=== PATIENT | female | born 1965 | race African-American/Black ===

== ENCOUNTER 2020-09-29 18:08 | Inpatient (IN) | payer OTHER ==
[~2020-09-29] VITALS: Ht 162.6 cm; Wt 130.2 kg
[2020-09-29 18:30] LABS: BASOPHILS # (AUTO) 0.1 /CMM (0.0-0.2); HEMOGLOBIN 11.5 g/dL (11.5-14.8); LYMPHOCYTES # (AUTO) 3.1 /CMM (0.8-4.8); MONOCYTES # (AUTO) 0.5 /CMM (0.1-1.30); NEUTROPHILS # (AUTO) 4.2 /CMM (1.8-8.9); WHITE BLOOD COUNT (AUTO) 8.6 K/uL (4.3-11.0)
[2020-09-29 18:33] LABS: BASOPHILS % (AUTO) 0.6 % (0.0-2.0); EOSINOPHILS % (AUTO) 8.9 % (0.0-6.0); HEMATOCRIT 37 % (33-45); LYMPHOCYTES % (AUTO) 35.6 % (20.0-44.0); MEAN CORPUSCULAR HGB CONC 31 g/dl (31.0-36.0); MEAN CORPUSCULAR VOLUME 77 fL (82-100); NEUTROPHILS % (AUTO) 48.9 % (43.0-81.0); PLATELET COUNT (AUTO) 378 /CMM (150-450); RED BLOOD CELL COUNT(AUTO) 4.75 MIL/uL (4.0-5.2)
[2020-09-29 18:47] LABS: ACETAMINOPHEN < 10 ug/ml (10-30); ALCOHOL, BLOOD 0 mg/dL (0-0); CALCIUM, SERUM 8.8 mg/dL (8.5-10.1); CARBON DIOXIDE 33 mmol/L (21-32); CHLORIDE 109 mmol/L (98-107); CREATININE 0.9 mg/dL (0.6-1.3); GLUCOSE 119 mg/dL (74-106); POTASSIUM 3.3 mmol/L (3.5-5.1); SODIUM SERUM 145 mmol/L (136-145); UREA NITROGEN, BLOOD 18 mg/dL (7-18)
--- NOTE | 2020-09-29 18:53 | NUR ---
THE PATIENT IS ALERT AND ORIENTED X3. DENIES PAIN. IN ROOM AIR AND DENIES SOB. RESPIRATION REGULAR AND UNLABORED.
--- NOTE | 2020-09-29 19:14 | NUR ---
UA DRUG SCREEN CANCELLED, ITS DONE FROM THE URGENT CARE TODAY.
--- NOTE | 2020-09-29 19:46 | NUR ---
BED 216-B
--- NOTE | 2020-09-29 20:16 | NUR ---
REPORT GIVEN TO TIFFANIE CHARGE NURSE
[2020-09-29] MEDS ORDERED: POTASSIUM CHLORIDE 20 MEQ TAB.PRT.SR PO ONE ×2 (20:25→20:30)
--- NOTE | 2020-09-29 20:59 | NUR ---
PT TRANSPORTED TO ICU
[2020-09-29] MEDS ORDERED: ARIP10TA9 PO (21:02)
[2020-09-29] MEDS ORDERED: DIPH50CA37 PO (21:03)
[2020-09-29] MEDS ORDERED: MAG HYDROX/AL HYDROX/SIMETH 30 ML UDC PO PRN (21:30)
[2020-09-29] MEDS ORDERED: ZOLPIDEM TARTRATE 5 MG TABLET PO PRN (21:30)
[2020-09-29] MEDS ORDERED: LORAZEPAM 1 MG TABLET PO PRN (21:30)
[2020-09-29] MEDS ORDERED: ACETAMINOPHEN 325 MG TABLET PO PRN (21:30)
[2020-09-29] MEDS ORDERED: MAGNESIUM HYDROXIDE 30 ML UDC PO PRN (21:30)
[2020-09-29] MEDS ORDERED: BLOOD SUGAR DIAGNOSTIC 1 EACH STRIP IN ONE (22:00)
--- NOTE | 2020-09-29 22:00 | NUR ---
[facility] DENTAL HYGIENIST NOTES: ADMITTED A 55YO FEMALE ON 5150 HOLD FOR DANGER TO SELF FROM [facility]. PER HOLD, PATIENT CALLED 911, FEELING HOPELESS AND SUICIDAL. PATIENT LOST EVERYTHING AND APPARENTLY HOMELESS NOW, GOT ILL AND WAS TRANSFERRED TO A FACILITY. PATIENT WILL BE UNDER THE CARE OF DR. VALENZUELA AND DR JASON FOR PSYCH AND MEDICAL DOCTORS RESPECTIVELY. DR JASON CAME TO THE UNIT. PATIENT WAS BROUGHT INTO THE UNIT VIA GURNEY, UPON FACE TO FACE ASSESSMENT, PATIENT PRESENTS ALERT AND ORIENTED X2-3, DENIES ANY MEDICAL HEALTH ISSUES HOWEVER, PATIENT'S MEDICAL RECORDS FROM PREVIOUS FACILITY STATES THAT PATIENT HAS CHRONIC BILATERAL KNEE PAIN AND HYPERTENSION. PATIENT WALKS WITH A STEADY GAIT, NO SKIN ISSUES NOTED AT THIS TIME. FACE PHOTO DONE. PATIENT NOTED TO BE DISHEVELED, UNKEMPT, FEARFUL AND ANXIOUS, LOOKING SAD AND HOPELESS. REALITY ORIENTATION DONE. Q15 MIN CHECKS INITIATED. CARE PLAN FORMULATED SPECIFIC TO THE PATIENT'S NEEDS. ORIENTATION TO UNIT, STAFF, DOCTORS DONE. GUIDE TO PRESCRIPTIONS MEDICATIONS AND PATIENT'S RIGHTS HANDBOOK PROVIDED. PATIENT SIGNED ADMISSION PAPERS. PATIENT THEN ADVISED OF THE HOLD. ENCOURAGED PATIENT TO VERBALIZE THOUGHTS AND FEELINGS TO STAFF AND INSTRUCTED TO CALL FOR HELP WHEN FEELING UNSAFE. ENVIRONMENTAL SAFETY CHECK DONE. WILL MONITOR PATIENT'S MOOD SAFETY AND BEHAVIOR.
[2020-09-30 06:06] LABS: BASOPHILS % (AUTO) 0.5 % (0.0-2.0); EOSINOPHILS % (AUTO) 10.8 % (0.0-6.0); HEMATOCRIT 34 % (33-45); HEMOGLOBIN 10.7 g/dL (11.5-14.8); LYMPHOCYTES # (AUTO) 2.9 /CMM (0.8-4.8); LYMPHOCYTES % (AUTO) 33.9 % (20.0-44.0); MEAN CORPUSCULAR HGB CONC 31 g/dl (31.0-36.0); MEAN CORPUSCULAR VOLUME 77 fL (82-100); MONOCYTES # (AUTO) 0.6 /CMM (0.1-1.30); MONOCYTES % (AUTO) 7.5 % (2.0-12.0); NEUTROPHILS % (AUTO) 47.3 % (43.0-81.0); PLATELET COUNT (AUTO) 335 /CMM (150-450); RED BLOOD CELL COUNT(AUTO) 4.43 MIL/uL (4.0-5.2); WHITE BLOOD COUNT (AUTO) 8.5 K/uL (4.3-11.0)
[2020-09-30 06:51] LABS: ALBUMIN 2.7 g/dL (3.4-5.0); BILIRUBIN,TOTAL 0.2 mg/dL (0.2-1.0); CALCIUM, SERUM 8.3 mg/dL (8.5-10.1); CREATININE 0.8 mg/dL (0.6-1.3); MAGNESIUM 1.8 mg/dL (1.8-2.4); PHOSPHORUS 3.3 mg/dL (2.5-4.9); POTASSIUM 3.9 mmol/L (3.5-5.1); TOTAL PROTEIN, SERUM 6.5 g/dL (6.4-8.2)
[2020-09-30 07:35] LABS: THYROID STIMULATING HORMONE 2.218 uIU/mL (0.358-3.74)
[2020-09-30 08:00] VITALS: BP 152/87
--- NOTE | 2020-09-30 11:26 | NUR ---
given tylenol 650 mg po for miguelina. knee pain.
[2020-09-30 16:00] VITALS: BP 155/88
--- NOTE | 2020-09-30 19:14 | NUR ---
cooperative,med compliant.
[2020-09-30 20:07] VITALS: BP 144/77
--- NOTE | 2020-09-30 20:49 | NUR ---
[facility]PS RN NOTES: PATIENT IS AGITATED, ANXIOUS, RESTLESS. PER PATIENT SHE WANTS TO BE DISCHARGED SO SHE CAN GO TO HER COUSINS HOUSE. THREATENING TO "GO OFF". ATIVAN 1MG/1TAB GIVEN PO PRN ORDERED AT 2044. WILL CONTINUE TO MONITOR.
[2020-09-30] MEDS ORDERED: diphenhydrAMINE HCL 50 MG CAPSULE PO SCH (22:00)
[2020-10-01 06:13] LABS: BASOPHILS % (AUTO) 0.5 % (0.0-2.0); EOSINOPHILS % (AUTO) 9.5 % (0.0-6.0); HEMATOCRIT 34 % (33-45); HEMOGLOBIN 10.8 g/dL (11.5-14.8); LYMPHOCYTES # (AUTO) 2.7 /CMM (0.8-4.8); LYMPHOCYTES % (AUTO) 30.8 % (20.0-44.0); MEAN CORPUSCULAR HGB CONC 32 g/dl (31.0-36.0); MEAN CORPUSCULAR VOLUME 76 fL (82-100); MONOCYTES # (AUTO) 0.6 /CMM (0.1-1.30); MONOCYTES % (AUTO) 7.1 % (2.0-12.0); NEUTROPHILS # (AUTO) 4.5 /CMM (1.8-8.9); NEUTROPHILS % (AUTO) 52.1 % (43.0-81.0); PLATELET COUNT (AUTO) 384 /CMM (150-450); RED BLOOD CELL COUNT(AUTO) 4.48 MIL/uL (4.0-5.2); WHITE BLOOD COUNT (AUTO) 8.7 K/uL (4.3-11.0)
--- NOTE | 2020-10-01 06:35 | NUR ---
GPS RN NOTE - CONTRABAND PATIENT CONTRABAND BELONGINGS BROUGHT TO RN ENVIRONMENTAL INTERN AND LOCKED IN SAFE #[id number] #[id number]
[2020-10-01 06:48] LABS: CALCIUM, SERUM 8.6 mg/dL (8.5-10.1); CREATININE 0.9 mg/dL (0.6-1.3); POTASSIUM 4.1 mmol/L (3.5-5.1)
[2020-10-01 08:00] VITALS: BP 151/92
[2020-10-01] MEDS ORDERED: ESCITALOPRAM OXALATE (10 MG) 10 MG TABLET PO SCH (09:00)
--- NOTE | 2020-10-01 13:43 | NUR ---
GPS DIRECTOR OF PRODUCT MANAGEMENT NOTE: PATIENT DISCHARGE AMA SEEN AND EXAMINE BY DR VALENZUELA. PATIENT A/OX3, AMBULATORY, SELF CARE, VSS . COMPLIANT WITH MEDICATIONS AND TX . PATIENT DENIES SI/HI AVH. ALL BELONGINGS AND VALUABLES , BELONGING LIST SIGN . PATIENT SIGN AMA PAPER . NO S/S DISTRESS NOTED PT DENIES BEEN DEPRESSED IN STABLE CONDITION.
--- NOTE | 2020-10-02 09:28 | NUR ---
UR Note: Maria Leonard ([phone]), [facility] therapeutic case manager, contacted the SW and SW conducted a discharge clinical on the line.
== END 2020-10-01 13:44 | disposition left against medical advice (07) | DRG 885 ==
LOC: ER 18:31 → GPS 19:53
PROVIDERS: ADMIT Psychiatry & Neurology Psychiatry; ATTEND Nurse Practitioner Acute Care
DX: F31.5 Bipolar disorder, current episode depressed, severe, with psychotic features (principal); Z68.42 Body mass index [BMI] 45.0-49.9, adult; R45.851 Suicidal ideations; E44.0 Moderate protein-calorie malnutrition; E66.01 Morbid (severe) obesity due to excess calories; F43.10 Post-traumatic stress disorder, unspecified; I10 Essential (primary) hypertension; F15.11 Other stimulant abuse, in remission; E87.6 Hypokalemia; F29 Unspecified psychosis not due to a substance or known physiological condition; Z73.6 Limitation of activities due to disability; F17.210 Nicotine dependence, cigarettes, uncomplicated
CPT/HCPCS: 36415; 80048-TC; 80053-TC; 80061-TC; 82962-TC; 83735-TC; 84100-TC; 84443-TC; 85025-TC; 87081-TC; G0480; Q0163